=== PATIENT | male | born 1980 | race Caucasian/White ===

== ENCOUNTER 2020-03-07 01:30 | Inpatient (IN) | payer MEDICAID ==
[~2020-03-07] VITALS: Ht 188 cm; Wt 85.9 kg
[2020-03-07] VITALS (7 sets, daily range): BP systolic 119–193; BP diastolic 66–100; Ht 188 cm; Wt 85.9 kg
--- NOTE | 2020-03-07 02:31 | NUR ---
NS CON'T AT 150ML/HOUR UPON ADMISSION.
--- NOTE | 2020-03-07 03:19 | NUR ---
PATIENT RECEIVED FROM ER. ALERT,ORIENTED. IV TO RAC INTACT WITHOUT REDNESS OR EDEMA NOTED. SPLINT INTACT LLE. ICE PACKS APPLIED TO LLE. ORIENTED TO ROOM. CL IN REACH. AT BEDSIDE
[2020-03-07 11:47] LABS: HEMATOCRIT 39.7 % (42.0-54.0); HEMOGLOBIN 13.2 g/dL (13.5-17.5); MCH 30.3 pg (26.0-34.0); MCHC 33.2 g/dL (31.0-37.0); MCV 91.1 fL (80.0-100.0); RBC 4.36 10x6/uL (4.20-6.10); RDW 13.9 % (11.5-14.5); WBC 8.4 10x3/uL (4.8-10.8)
[2020-03-07 11:56] LABS: CALC OSMOLALITY 273 mosm/kg (275-300); CARBON DIOXIDE 31.4 mmol/L (21.0-32.0); CHLORIDE - SERUM 103 mmol/L (98-107); CREATININE - SERUM 1.1 mg/dL (0.6-1.3); GLUCOSE 119 mg/dL (74-106); POTASSIUM - SERUM 3.5 mmol/L (3.5-5.1); SODIUM 136 mmol/L (136-145); UREA NITROGEN 15 mg/dL (7-18); eGFR NON AFRICAN AMERICAN 79 mL/min (90-120)
--- NOTE | 2020-03-07 19:20 | NUR ---
PATIENT RESTING IN BED WITH EYES CLOSED AND NO S/S OF DISTRESS. BED IN LOWEST POSITION AND CALL LIGHT WITHIN REACH. WILL CONTINUE TO MONITOR.
--- NOTE | 2020-03-07 20:00 | NUR ---
A&0 IN BED. PT ASKED IT WE HAD CRUTCHES SO THAT HE COULD USE THE BATHROOM LATER. TO PT I WOULD HAVE TO ASK HIS NURSE WHAT HIS RESTRICTIONS WERE WITH WEIGH BEARING. PT REPORTED HE WAS NON-WEIGHTBEARING. INFORMED PT HE WOULD PROBABLY HAVE TO USE A BEDPAN, PT STATED THAT WAS FINE. STARTED TO GET BEDPAN, PT STATED HE DID NOT NEED IT RIGHT NOW, BUT HE WILL LET US KNOW WHEN HE NEEDS IT.
--- NOTE | 2020-03-07 20:47 | NUR ---
HUNG IV FLUIDS PER ORDERS. EXPLAINED TO THE PATIENT THAT HE WOULD NEED ANOTHER CHG BATH IN THE MORNING BEFORE SURGERY. TOLD PATIENT IT WOULD BE AROUND 4AM WHEN VITALS WERE DONE. PATIENT STATED HE DOES NOT WANT TO BE BOTHERED AND DOES NOT WANT HIS VITALS TAKEN AT MIDNIGHT. I EDUCATED THE PATIENT ON THE IMPORTANCE OF THE CHG BATH PRIOR TO SURGER. PATIENT VERBALIZED UNDERSTANDING. PATIENT DENIES OTHER NEEDS AT THIS TIME. BED IN LOWEST POSITION AND CALL LIGHT WITHIN REACH. ENCOURAGED THE PATIENT TO CALL IF HE HAS NEEDS. WILL CONTINUE TO MONITOR.
--- NOTE | 2020-03-08 05:00 | NUR ---
A&O X 4 IN ROOM, AT BEDSIDE. INFORMED PT HE NEEDED A HIBICLENS THIS MORNING. INSISTED ON PERFORMING BED BATH, HERSELF. TOWELS, RAGS, HIBICLENS SOAP, AND LINEN SET IN ROOM AND INSTRUCTED ON HOW TO PERFORM BATH. INSTRUCTED ON TO CALL IF HELP IS NEEDED FOR LINEN CHANGE. CONTINUE PLAN OF CARE.
[2020-03-08 05:34] VITALS: BP 143/91
[2020-03-08 09:06] VITALS: BP 141/91
[2020-03-08 12:34] VITALS: BP 130/86
--- NOTE | 2020-03-08 16:00 | NUR ---
PT HAS BEEN UPSET WAITING FOR SURGERY TODAY. SHILOH HAS BEEN A BEDSIDE MOST OF THE DAY. REQUEST TO BE MOVED TO [facility] SO HE CAN HAVE SURGERY THERE. HEAD WAITER INFORMED PT AND OF ENABLITY TO TRANSFER TO [facility]. 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 HEAD WAITER NOTIFIED FOR PT CONCERN. PT LEFT FOOT WITH PITTING EDEMA AND PLACED ON PILLOW AND FOOT OF BED ELEVATED
[2020-03-08 17:09] VITALS: BP 149/93
--- NOTE | 2020-03-08 19:30 | NUR ---
PT AUNT CALLED [facility] WITH [employer] WANTING UPDATE. STATES THEY ARE UNHAPPY THAT PT HAS NOT BEEN TAKE TO SURGERY ALREADY. FAMILY HAS ALREADY SPOKEN TO TRAFFIC SIGN SUPERVISOR ABOUT THE SITUATION AND SURGERY BEING PUSHED BACK TO D/T EMERGENCY SURGERIES COMING IN. PT AUNT FEELS LIKE PT IS IN SO MUCH PAIN THAT IT SHOULD BE CONSIDERED AN EMERGENCY AND HE BE TAKEN BACK RIGHT NOW. TOLD FAMILY MEMBER SHE CAN SPEAK WITH TRAFFIC SIGN SUPERVISOR BUT THE LAST UPDATE I GOT FROM SURGERY WAS THAT HE WOULD BE TAKEN BACK AROUND 1999. AUNT ASKED WHAT THEIR OPTIONS ARE FOR LEAVING IF HE IS NOT TAKEN TO SURGERY IN THE NEXT HOUR. EXPLAINED TO HER PT CAN LEAVE AMA IF HE WANTS BUT WOULD HAVE TO SIGN A FORM AND INFORMED THAT INSURANCE WOULD NOT PAY. SHE STATES THEY DO NOT HAVE INSURANCE ANYWAY. STATES IF HE IS NOT TAKEN TO SURGERY IN THE NEXT HOUR THEY WANT TO LEAVE. UPDATED TRAFFIC SIGN SUPERVISOR OF SITUATION
[2020-03-08 20:00] VITALS: BP 141/95
--- NOTE | 2020-03-08 21:20 | NUR ---
PT TAKEN TO SURGERY AT THIS TIME
--- NOTE | 2020-03-08 22:12 | NUR ---
ANESTHESIA BLOCKS DONE IN ROOM ONCE PATIENT WAS ASLEEP.
[2020-03-09] VITALS (9 sets, daily range): BP systolic 129–154; BP diastolic 72–86
--- NOTE | 2020-03-09 00:45 | NUR ---
PT BACK FROM SURGERY. ANXIOUS AND CONFUSED. STATES HIS UPPER LEG HURTS AND IS GRABBING AT SITE WHERE TOURNIQUET WAS. CANNOT DESCRIBE WHAT THE PAIN FEELS LIKE, JUST SAYING IT HURTS. SAYING HE HAS TO GO TO THE BATHROOM BUT WAS UNABLE TO GO IN URINAL AFTER TWO ATTEMPTS. PT ALSO SHIVERING SO MUCH IT WAS DIFFICULT TO GET BP READING. RECOVERY NURSE GAVE PT DEMEROL. PT IMMEDIATELY RELAXED AND WENT TO SLEEP. VSS. LEFT FOOT PULSE PRESENT. AT BEDSIDE, DENIES NEEDS. WILL CTM
[2020-03-09] MEDS ORDERED: ELIQUIS2.5 MG PO (16:18)
[2020-03-09] MEDS ORDERED: PERCOCET 10-321 EAC1 PO (16:18)
--- NOTE | 2020-03-09 17:04 | MORECARE ---
CASE MANAGEMENT DISCHARGE SUMMARY PATIENT: GERARDO CURTIS UNIT: [id number] ADM DATE: 03/07/20 AGE: 39 : [birth year] SEX: M ROOM/BED: D.2208 AUTHOR: DARIUS NEGRO PHYSICIAN: REFERRING PHYSICIAN: KURTIS FISHER MD DATE OF SERVICE: 03/09/20 Discharge Plan Patient Name: GERARDO CURTIS [facility] [facility] 1980 Planned Disposition: Home Anticipated Discharge Date: Discharge Date: Expected LOS: Initial Reviewer: [email or web address] Initial Review Date: 03/07/2020 Generated: 03/09/20 6:03 pm Comments DCP- Discharge Planning Updated by [email or web address]: Karla Reyes on 03/09/20 3:[address] Patient Name: GERARDO CURTIS Admission Status: ER Accout number: [id number] Admission Date: 03-07-2020 : 1980 Admission Diagnosis: Attending: KURTIS FISHER Current LOS: 2 Anticipated DC Date: Planned Disposition: Primary Insurance: MEDICAID [place] PENDING Discharge Planning Comments: PATIENT STATES HIS SISTER HAS CRUTCHES HE IS GOING TO USE. PATIENT WANTING TO BE DISCHARGED TODAY. Rubber Engraver: Karla Reyes Patient Name: GERARDO CURTIS Page [phone] at 1704 All edits/amendments must be made on the electronic document DICTATION DATE: 03/09/201703 MANAGER FAST FOOD: BETTY 03/09/201703 RPT#: [id number] DC DATE: STATUS: ADM IN [id number] [place] [address] END OF REPORT
--- NOTE | 2020-03-10 16:56 | MORECARE ---
CASE MANAGEMENT DISCHARGE SUMMARY PATIENT: GERARDO CURTIS UNIT: [id number] ADM DATE: 03/07/20 AGE: 39 : [birth year] SEX: M ROOM/BED: D.2208 AUTHOR: DARIUS NEGRO PHYSICIAN: REFERRING PHYSICIAN: KURTIS FISHER MD DATE OF SERVICE: 03/10/20 Discharge Plan Patient Name: GERARDO CURTIS [facility] [facility] 1980 Planned Disposition: Home Anticipated Discharge Date: Discharge Date: 03/09/2020 Expected LOS: Initial Reviewer: [email or web address] Initial Review Date: 03/07/2020 Generated: 03/10/20 5:56 pm Comments DCP- Discharge Planning Updated by [email or web address]: Karla Reyes on 03/09/20 3:[address] Patient Name: GERARDO CURTIS Admission Status: ER Accout number: [id number] Admission Date: 03-07-2020 : 1980 Admission Diagnosis: Attending: KURTIS FISHER Current LOS: 2 Anticipated DC Date: Planned Disposition: Primary Insurance: MEDICAID [place] PENDING Discharge Planning Comments: PATIENT STATES HIS SISTER HAS CRUTCHES HE IS GOING TO USE. PATIENT WANTING TO BE DISCHARGED TODAY. Hobbing Machine Operator: Karla Hamlin DP export: 03/09/20 4:04 p Patient Name: GERARDO CURTIS Page [phone] at 1656 All edits/amendments must be made on the electronic document DICTATION DATE: 03/10/201655 SEWING DEPARTMENT SUPERVISOR: BETTY 03/10/201655 RPT#: [id number] DC DATE:03/09/20 STATUS: DIS IN [facility] [place] [address] END OF REPORT
--- NOTE | 2020-03-13 09:12 | OP ---
PATIENT NAME: GERARDO CURTIS MEDICAL RECORD: [id number] :80 LOCATION:D.MS [id number] ADMISSION DATE:03/07/20 SURGEON: KURTIS FISHER MD DATE OF OPERATION: 03/08/2020 PREOPERATIVE DIAGNOSES: 1. Bimalleolar ankle fracture. 2. Significantly displaced pilon fracture of the left lower extremity. POSTOPERATIVE DIAGNOSES: 1. Bimalleolar ankle fracture. 2. Significantly displaced pilon fracture of the left lower extremity. PROCEDURE: 1. Open reduction internal fixation of left distal pilon fracture. 2. Open reduction internal fixation of displaced lateral malleolus. 3. Open reduction internal fixation of displaced medial malleolus. SURGEON: Kurtis Fisher MD ANESTHESIA: General. INTRAOPERATIVE COMPLICATIONS: Essentially none. SUMMARY OF PATHOLOGIC FINDINGS: The patient had an approximately 3 cm displacement of the anterior lateral aspect of his pilon that was into the lateral gutter of the ankle. The patient had a substantially displaced medial malleolus that was fragmented and the lateral malleolus was grossly angulated and posteriorly displaced. This represents a significant pylon/bimalleolar ankle fracture that required substantial difficulty for fixation with reduction. IMPLANTS USED: AxSOS 3D printed system from [employer]. OPERATIVE SUMMARY IN DETAIL: After obtaining the appropriate preoperative orthopedic surgery consent as well as anesthetic consultation, evaluation and clearance, the patient was brought to the operating room and placed on the operating table in supine position. After adequate general laryngeal mask airway was administered, tourniquet was placed about the proximal aspect of the left lower extremity. Left lower extremity was then prepped and draped in routine sterile fashion. Leg was elevated, exsanguinated, and tourniquet was inflated to 350 mmHg. At this point, the appropriate timeout was taken and agreed upon by all given the patient's unique identifiers. Attention was first turned to the tibial pilon fracture. Anterolateral incision was made, taken down to the level of the fracture. Care was taken to avoid all soft tissue neurovascular bundles. With complete exposure substantial difficulty was required in getting the pilon fragment down to its anatomic articular location; however, when this was achieved, two compression screws were placed across the fracture itself to hold it in place provisionally and then the Jackson anterior lateral periarticular plate was deployed and placed under fluoroscopic guidance. Serial drill and fill was done with both compression and locking screws. A 5.0 compression screws were left in place to further hold the pilon fracture itself. Having completed the pilon fracture and being satisfied on AP and lateral fluoroscopic planes, attention was turned to the lateral malleolus. Incision was made over the distal fibula, taken down to the level of the fracture itself, which was grossly 100% displaced. It was reduced to an anatomic position and OPERATIVE REPORT [id number] KENDRAALISEGERARDO likewise provisionally pinned with a K-wire. Lateral malleolar VariAx plate was then utilized with a combination of both compression and locking screws to hold it in anatomic position. Having completed this, attention was turned to the medial malleolus. Incision was made completely over the medial malleolus. The medial malleolar fragment was displaced. It was then held back into place with provisional pinning and then two 4.0 compression screws were placed across and resulted in anatomic reduction. Having completed this, all wounds were copiously irrigated and closed using combination of 2-0 Vicryl and skin tripp with the assistance of WILIAN Dodson. This was closed by both of us. Having completed this, the tourniquet was deflated. Posterior L and U splint was applied. The patient was then awakened and taken to recovery room in stable condition. All final needle and sponge counts were correct. Again, this was an extremely comminuted fracture, but it did appear to have an anatomic resolution at the end of the surgery. All final needle and sponge counts were correct. TRANSINT:[id number] Voice Confirmation ID: [id number] DOCUMENT ID: [id number] PHILLIP PEARCE, KURTIS LO at 0912 CC: [id number] DICTATION DATE: 03/12/20 1030 ASPHALT WORKER: 03/12/201957 DIS IN 03/09/20 [facility] [address] [place] [address]
== END 2020-03-09 17:20 | disposition home or self-care (01) | DRG 494 ==
LOC: D.ER 01:30 → OBSVTIME 01:38 → D.MS 01:38
PROVIDERS: ADMIT Orthopaedic Surgery; ATTEND Orthopaedic Surgery
PROC: 0QSH04Z Reposition Left Tibia with Internal Fixation Device, Open Approach (ICD-10-PCS; 2020-03-08)
PROC: 0QSK04Z Reposition Left Fibula with Internal Fixation Device, Open Approach (ICD-10-PCS; principal; 2020-03-08 17:45)
DX: S82.872A Displaced pilon fracture of left tibia, initial encounter for closed fracture (principal); V29.9XXA Motorcycle rider (driver) (passenger) injured in unspecified traffic accident, initial encounter; S82.892A Other fracture of left lower leg, initial encounter for closed fracture

== ENCOUNTER 2020-03-13 16:30 | Emergency (ER) | payer MEDICAID ==
[~2020-03-13] VITALS: Ht 188 cm; Wt 90.9 kg
[~2020-03-13 16:30] MED LIST: ELIQUIS2.5 MG PO; PERCOCET 10-321 EAC1 PO
[2020-03-13 16:35] VITALS: Ht 188 cm; Wt 90.9 kg
[2020-03-13] MEDS ORDERED: DILAUDID4 MG PO (18:44)
[2020-03-13 19:10] VITALS: BP 115/82
== END 2020-03-13 19:10 | disposition home or self-care (01) ==
LOC: D.ER 16:30
DX: G89.18 Other acute postprocedural pain (principal); M79.605 Pain in left leg; S82.302G Unspecified fracture of lower end of left tibia, subsequent encounter for closed fracture with delayed healing; X58.XXXD Exposure to other specified factors, subsequent encounter

== ENCOUNTER 2020-05-10 09:03 | Day surgery (SDC) | payer MEDICAID ==
[~2020-05-10] VITALS: Ht 188 cm; Wt 86.2 kg
[~2020-05-10 09:03] MED LIST changes: +BACTRIM DS TAB1 EAC1 PO; +DILAUDID4 MG PO; +HYDROCODON-ACE1 EA10 PO; +HYDROXYZINE HCL50 MG PO
[2020-05-10 09:47] VITALS: BP 142/83; Ht 188 cm; Wt 86.2 kg
[2020-05-10] MEDS ORDERED: HYDROCODON-ACE1 EA10 PO (13:47)
--- NOTE | 2020-05-10 15:56 | NUR ---
DISCHARGE INSTRUCTIONS REVIEWED WITH PATIENT AND SPOUSE, DISCHARGED HOME VIA WHEELCHAIR TO PRIVATE VEHICLE WITH SPOUSE
--- NOTE | 2020-05-11 16:07 | OP ---
PATIENT NAME: GERARDO CURTIS MEDICAL RECORD: [id number] :80 LOCATION:D.OPS ADMISSION DATE: SURGEON: KURTIS FISHER MD DATE OF OPERATION: 05/10/2020 PREOPERATIVE DIAGNOSIS: Open wound, dorsum of left ankle. POSTOPERATIVE DIAGNOSIS: Open wound, dorsum of left ankle. PROCEDURE: 1. Excisional debridement of skin, subcutaneous tissue, portions of fascia. Aggregate is less than 20 cm. 2. Application of Restrata synthetic skin graft. 3. PRP on skin graft as well as injected around the wound. SURGEON: Kurtis Fisher MD ANESTHESIA: General. INTRAOPERATIVE COMPLICATIONS: None. SUMMARY OF PATHOLOGIC FINDINGS: The patient now has an exposed anterior tibialis tendon, which seemed to be tough; however, the decision was made to proceed with grafting to try and get this to close. OPERATIVE SUMMARY IN DETAIL: After obtaining the appropriate preoperative orthopedic surgery consent as well as anesthetic consultation, evaluation, and clearance, the patient was brought to the operating room and placed on the operating table in the supine position. After adequate general laryngeal mask airway was administered, the patient's left lower extremity was prepped and draped in a routine sterile fashion. A combination of rongeur, curettage, and sharp debridement was utilized to debride all nonviable-appearing portions of this wound. This was also copiously irrigated until good viable tissue was seen. The only tissue that was not bleeding was the tendon itself. At this point, 2.5 x 5 cm Restrata was meshed to 1:1.5. It was then soaked in platelet-rich plasma for approximately 10 minutes. It was applied to the wound and held in place by tripp. Residual of the PRP was then injected circumferentially about the wound margins as well as into the wound bed itself and into the portions of the exposed anterior tibialis. This was then covered with a nonstick veil followed by standard dressings. In order to keep this still, the patient was placed in a posterior L&U splint. He was then awakened and taken to recovery room in stable condition. All final needle and sponge counts were correct. NTS:[id number] Voice Confirmation ID: [id number] DOCUMENT ID: [id number] KURTIS FISHER MD at 1607 CC: [id number] DICTATION DATE: 05/10/20 1350 PAPERHANGER SUPERVISOR: 05/10/20 2330 [facility] 05/10/20 [address] [place] [address]
== END 2020-05-10 15:56 | disposition home or self-care (01) ==
LOC: D.OPS 09:03
PROVIDERS: ATTEND Orthopaedic Surgery
DX: S81.802A Unspecified open wound, left lower leg, initial encounter (principal); X58.XXXA Exposure to other specified factors, initial encounter; S89.202A Unspecified physeal fracture of upper end of left fibula, initial encounter for closed fracture; M25.572 Pain in left ankle and joints of left foot
CPT/HCPCS: 11043; 0232T

== ENCOUNTER 2020-05-27 08:50 | Day surgery (SDC) | payer MEDICAID ==
[~2020-05-27] VITALS: Ht 188 cm; Wt 86.2 kg
--- NOTE | ~2020-05-27 | OP ---
PATIENT NAME: GERARDO CURTIS MEDICAL RECORD: [id number] :80 LOCATION:D.OPS ADMISSION DATE: SURGEON: KURTIS FISHER MD DATE OF OPERATION: 05/27/2020 PREOPERATIVE DIAGNOSIS: Open wound with exposed anterior tibialis tendon of the right ankle. POSTOPERATIVE DIAGNOSIS: Open wound with exposed anterior tibialis tendon of the right ankle. PROCEDURES: 1. Repeat irrigation and debridement of the right ankle to include skin, subcutaneous tissue, portions of fat, and fascia. 2. Application of Restrata synthetic graft with PRP. SURGEON: Kurtis Fisher MD ANESTHESIA: General. INTRAOPERATIVE COMPLICATIONS: None. SUMMARY OF PATHOLOGIC FINDINGS: As predicted and discussed above, the patient had a complete exposure of his anterior tibialis. In order to try and save this, a full thickness Restrata graft was used soaked in PRP, wrapped circumferentially around the tendon and the residual of which was placed over it to try and stimulate healthy tissue growth. OPERATIVE SUMMARY IN DETAIL: After obtaining the appropriate preoperative orthopedic surgery consent as well as anesthetic consultation, evaluation and clearance, the patient was brought to the operating room and placed on the operating table in supine position. After general laryngeal mask airway was administered, the patient's right lower extremity was prepped and draped in routine sterile fashion. It is of note that the wound size has become much smaller; however, the exposed tendon is problematic. After copious irrigation with a knife, curettage, and scalpel to be sure that nonviable tissue had been debrided. The patient's PRP, which had been previously drawn and spun and concentrated was then used to soak into the Restrata graft that was unmeshed. The Restrata graft was then wrapped circumferentially around the tendon and sewn in gently with chromic sutures. Having completed this, the residual of the Restrata was then sewn completely over the entire wound. It also was soaked in PRP. The residual of the PRP was then injected circumferentially about the wound as well as into the wound bed to help promote healing. Having completed this, sterile dressings were applied. Posterior L&U splint was applied. The patient was then awakened and taken to recovery room in stable condition. All final needle and sponge counts were correct. TRANSINT:[id number] Voice Confirmation ID: [id number] DOCUMENT ID: [id number] OPERATIVE REPORT [id number] GERARDO CURTIS MD, JAMES KEVIN CC: [id number] DICTATION DATE: 06/10/20 1349 MEAT PRESS OPERATOR: 06/10/[address] [facility] 05/27/20 [address] [place] [address]
[2020-05-27] MEDS ORDERED: BACTRIM DS TAB1 EAC1 PO ×2 (10:16→14:10)
[2020-05-27 10:17] VITALS: BP 126/81; Ht 188 cm; Wt 86.2 kg
[2020-05-27] MEDS ORDERED: HYDROCODON-ACE1 EA10 PO (14:10)
--- NOTE | 2020-05-27 16:59 | NUR ---
1600 IV REMOVED FROM RIGHT AC. PRESSURE HELD AND DRESSING APPLIED. 1530 MEDICATED FOR PAIN. INSTRUCTIONS GIVEN TO PT.
== END 2020-05-27 16:55 | disposition home or self-care (01) ==
LOC: D.OPS 08:50
PROVIDERS: ATTEND Orthopaedic Surgery
DX: S81.802A Unspecified open wound, left lower leg, initial encounter (principal); X58.XXXA Exposure to other specified factors, initial encounter; S89.202A Unspecified physeal fracture of upper end of left fibula, initial encounter for closed fracture; M25.572 Pain in left ankle and joints of left foot
CPT/HCPCS: 11043; 0232T

== ENCOUNTER → 2020-10-28 07:38 | Day surgery (SDC) | payer MEDICAID ==
[2020-10-01 13:11] VITALS: BMI 24.4
== END | disposition home or self-care (01) ==
LOC: D.OPS 07:38
PROVIDERS: ATTEND Orthopaedic Surgery
DX: S91.002D Unspecified open wound, left ankle, subsequent encounter (principal); Z53.9 Procedure and treatment not carried out, unspecified reason

== ENCOUNTER 2020-11-22 06:41 | Day surgery (SDC) | payer MEDICAID ==
[2020-11-22] MEDS ORDERED: PEPCID AC20 MG (07:42)
[2020-11-22 10:11] LABS: BASOPHILS 0.1 % (0-2); EOSINOPHILS 1.9 % (0-7); HEMATOCRIT 42.8 % (42.0-54.0); HEMOGLOBIN 13.9 g/dL (13.5-17.5); IMMATURE GRANULOCYTES 0.3 % (0-5); LYMPHOCYTE ABS# 1.99 10x3/uL (1.32-3.57); MCH 28.8 pg (26.0-34.0); MCHC 32.5 g/dL (31.0-37.0); MCV 88.8 fL (80.0-100.0); MEAN PLATELET VOLUME 11.1 fL (7.4-10.4); MONOCYTES 8.9 % (2-11); NEUTROPHILS 59.8 % (40-80); RBC 4.82 10x6/uL (4.20-6.10); RDW 15.1 % (11.5-14.5); WBC 6.9 10x3/uL (4.8-10.8)
[2020-11-22 10:26] LABS: PLATELET COUNT 208 10x3/uL (130-400)
[2020-11-22 10:27] LABS: C-REACTIVE PROTEIN 0.4 mg/dL (0.0-0.9); CALC OSMOLALITY 275 mosm/kg (275-300); CALCIUM 8.6 mg/dL (8.5-10.1); CARBON DIOXIDE 30.9 mmol/L (21.0-32.0); CHLORIDE - SERUM 103 mmol/L (98-107); CREATININE - SERUM 1.1 mg/dL (0.6-1.3); GLUCOSE 111 mg/dL (74-106); POTASSIUM - SERUM 5.4 mmol/L (3.5-5.1); SODIUM 136 mmol/L (136-145); UREA NITROGEN 22 mg/dL (7-18); eGFR NON AFRICAN AMERICAN 79 mL/min (90-120)
[2020-11-22 12:00] LABS: ERYTHROCYTE SEDIMENTATION RATE 1 mm/hr (0-15)
== END 2020-11-22 12:00 | disposition home or self-care (01) ==
LOC: D.OPS 06:41
PROVIDERS: Orthopaedic Surgery
DX: S91.002D Unspecified open wound, left ankle, subsequent encounter (principal); X58.XXXD Exposure to other specified factors, subsequent encounter; S82.90XA Unspecified fracture of unspecified lower leg, initial encounter for closed fracture; M86.8X7 Other osteomyelitis, ankle and foot